=== PATIENT | female | born 1990 | race Caucasian/White ===

== ENCOUNTER 2021-12-07 05:51 | Emergency (ER) | payer OTHER ==
[~2021-12-07] VITALS: Ht 175.3 cm; Wt 113.4 kg
--- NOTE | 2021-12-07 07:02 | NUR ---
URINE SAMPLE COLLECTED AND SENT TO LAB
[2021-12-07 07:16] LABS: BASOPHILS % (AUTO) 0.4 % (0.0-2.0); EOSINOPHILS % (AUTO) 0.7 % (0.0-6.0); HEMATOCRIT 32 % (33-45); LYMPHOCYTES # (AUTO) 3.6 K/uL (0.8-4.8); LYMPHOCYTES % (AUTO) 35.1 % (20.0-44.0); MEAN CORPUSCULAR HGB CONC 31 g/dl (31.0-36.0); MEAN CORPUSCULAR VOLUME 69 fL (82-100); MONOCYTES # (AUTO) 0.7 K/uL (0.1-1.30); MONOCYTES % (AUTO) 7.4 % (2.0-12.0); NEUTROPHILS # (AUTO) 5.7 K/uL (1.8-8.9); NEUTROPHILS % (AUTO) 56.4 % (43.0-81.0); PLATELET COUNT (AUTO) 377 K/uL (150-450); RED BLOOD CELL COUNT(AUTO) 4.68 MIL/uL (4.0-5.2); WHITE BLOOD COUNT (AUTO) 10.2 K/uL (4.3-11.0)
[2021-12-07 07:36] LABS: CALCIUM, SERUM 8.5 mg/dL (8.5-10.1); CREATININE 0.6 mg/dL (0.6-1.3); POTASSIUM 3.8 mmol/L (3.5-5.1)
[2021-12-07 07:40] LABS: BILIRUBIN,URINE SMALL (NEGATIVE); COLOR,URINE YELLOW (YELLOW); LEUKOCYTE ESTERASE ,URINE NEGATIVE (NEGATIVE); NITRITE, URINE NEGATIVE (NEGATIVE); PROTEIN,URINE 30 mg/dl (NEGATIVE); UGLUCOSE NEGATIVE (NEGATIVE); UROBILINOGEN,URINE 0.2 EU/dL (0.2)
[2021-12-07 07:44] LABS: ALBUMIN 3.5 g/dL (3.4-5.0); BILIRUBIN,DIRECT 0.1 mg/dL (0.0-0.2); BILIRUBIN,TOTAL 0.3 mg/dL (0.2-1.0); TOTAL PROTEIN, SERUM 7.8 g/dL (6.4-8.2)
--- NOTE | 2021-12-07 07:45 | NUR ---
Ambulatory-BRP. NO acute changes in no obvious distress. Status quo
[2021-12-07 08:01] LABS: BACTERIA,URINE None seen /HPF (None Seen); RBC,URINE TOO NUMEROUS TO COUN /HPF (0-2); SQUAMOUS EPITHELIAL CELL,UR None Seen /HPF (None Seen); WBC,URINE NONE SEEN /HPF (0-3)
--- NOTE | 2021-12-07 08:30 | NUR ---
US tech here at bedside
[2021-12-07 09:20] LABS: EOSINOPHILS % (MANUAL) 1 % (0-4); LYMPHOCYTES % (MANUAL) 33 % (16-48); MONOCYTES % (MANUAL) 6 % (0-11.0); NEUTROPHILS % (MANUAL) 60 (42-76)
[2021-12-07] MEDS ORDERED: HYDR-4209 PO (09:47)
[2021-12-07] MEDS ORDERED: NORE-83 PO ×2 (09:47→09:48)
[2021-12-07] MEDS ORDERED: TRAN650T2 PO ×2 (09:47→09:48)
[2021-12-07] MEDS ORDERED: HYDROCODONE/APAP 5/325MG TABLET ONE (09:59)
[2021-12-07] MEDS ORDERED: HYDROCODONE/APAP 5/325MG TABLET PO ONE (10:00)
[2021-12-07 10:07] VITALS: BP 115/80
--- NOTE | 2021-12-07 10:07 | NUR ---
Patient discharged to home in stable condition. Written and verbal after care instructions given. Patient verbalizes understanding of instruction.
== END 2021-12-07 10:09 | disposition home or self-care (01) ==
LOC: ER 05:55
DX: N93.9 Abnormal uterine and vaginal bleeding, unspecified (principal); Z79.899 Other long term (current) drug therapy
CPT/HCPCS: 36415; 76856-TC; 80048-TC; 80076-TC; 81001; 84703-TC; 85025-TC; 85730-TC

== ENCOUNTER 2022-01-05 12:40 | Emergency (ER) | payer OTHER ==
[~2022-01-05] VITALS: Ht 175.3 cm; Wt 113.4 kg
[~2022-01-05 12:40] MED LIST: HYDR-4209 PO; NORE-83 PO; TRAN650T2 PO
--- NOTE | 2022-01-05 12:40 | NUR ---
BIBS C/O VAGINAL BLEEDING, R SIDED ABOMINAL PAIN 6/10, MIGRAINE 10/10 HEAD PAIN AND NAUSEA X3DAYS. PT STATED HER LAST LMP WAS OVER AM ONTH AGO AND LASTED FOR 3 MONTHS. AWAITING MD CHINO.
[2022-01-05] MEDS ORDERED: MORPHINE SULFATE INJ 2 MG/ML DISP.SYRIN IM ONE (13:00)
[2022-01-05] MEDS ORDERED: ONDANSETRON HCL/PF - ER 4 MG/2 ML VIAL IM ONE (13:00)
[2022-01-05] MEDS ORDERED: MORPHINE SULFATE INJ 2 MG/ML DISP.SYRIN ONE (13:18)
[2022-01-05] MEDS ORDERED: ONDANSETRON HCL/PF 4 MG/2 ML VIAL ONE (13:18)
--- NOTE | 2022-01-05 13:50 | NUR ---
URINE SAMPLE COLLECTED AND SENT TO LAB
[2022-01-05] MEDS ORDERED: HYDR-3980 PO (14:30)
--- NOTE | 2022-01-05 14:38 | NUR ---
Patient discharged to home in stable condition. Written and verbal after care instructions given. Patient verbalizes understanding of instruction.
[2022-01-05 14:39] VITALS: BP 139/92
== END 2022-01-05 14:39 | disposition home or self-care (01) ==
LOC: ER 12:46
DX: R51.9 Headache, unspecified (principal); E28.2 Polycystic ovarian syndrome; Z79.899 Other long term (current) drug therapy
CPT/HCPCS: 99284; 96372 ×2; 84703; J2405; J2270